=== PATIENT | male | born 1970 | race Two or more races ===

== ENCOUNTER 2018-03-16 13:04 | Outpatient (CLI) | payer OTHER | END 2018-03-16 13:08 | disposition home or self-care (01) | LOC: RAD 13:04 | DX: M20.11 Hallux valgus (acquired), right foot (principal) ==

== ENCOUNTER 2018-03-30 11:42 | Outpatient (CLI) | payer OTHER | END 2018-03-30 11:55 | disposition home or self-care (01) | LOC: RAD 501 11:42 | DX: M20.11 Hallux valgus (acquired), right foot (principal) ==